=== PATIENT | male | born 1950 | race Caucasian/White ===

== ENCOUNTER 2025-08-14 20:16 | Inpatient (IN) | payer OTHER ==
[~2025-08-14] VITALS: Ht 188 cm; Wt 103.8 kg
[2025-08-14] MEDS ORDERED: Amiodarone HCl 150 MG in NS 100 ML IV ONE (20:50)
[2025-08-14] MEDS ORDERED: Amiodarone HCl 450 MG in NS 250 ML IV SCH (20:50)
[2025-08-14 20:57] LABS: pH Blood Arterial 7.24 (7.35-7.45)
[2025-08-14 20:58] LABS: Hematocrit 49.1 % (37.0-53.0); Hemoglobin 16.2 g/dL (13.5-17.5); Mean Corpuscular HGB Conc 33.0 g/dL (31.5-36.5); Mean Corpuscular Volume 92 fL (80-100); NRBC ABSOLUTE 0.02 K/mm3 (0.00-0.02); NRBC Auto 0.2 /100 WBC (0.0-0.2); Platelet Count 90 K/mm3 (150-400); RDW Coefficient Variation 15.6 % (11.7-14.2); RDW Standard Deviation 53.1 fL (35.1-46.3)
[2025-08-14 21:02] LABS: Alanine Aminotransfer (ALT/SGP 88 U/L (12-78); Albumin, Blood 2.9 g/dL (3.4-5.0); Albumin/Globulin Ratio 0.8 (0.8-1.8); Anion Gap 23 mmol/L (3-11); Aspartate Aminotrans (AST/SGOT 150 U/L (12-37); Bilirubin, Total 2.0 mg/dL (0.1-1.0); Blood Urea Nitrogen 54 mg/dL (8-24); CO2, Blood 14 mmol/L (21-32); Calcium, Blood 9.1 mg/dL (8.5-10.1); Chloride, Blood 102 mmol/L (98-108); Creatinine, Blood 3.55 mg/dL (0.60-1.20); Globulin, Blood 3.8 g/dL (2.2-4.0); Glucose, Blood 84 mg/dL (70-99); Potassium, Blood 3.3 mmol/L (3.5-5.5); Sodium, Blood 136 mmol/L (136-145); Total Protein, Blood 6.7 g/dL (6.4-8.2)
[2025-08-14 21:11] LABS: BAND PERCENT MAN 37 % (0-8); BASOPHILS ABSOLUTE MAN 0.00 K/mm3 (0.00-0.23); BASOPHILS PERCENT MAN 0 % (0-2); EOSINOPHILS ABSOLUTE MAN 0.00 K/mm3 (0.00-0.68); EOSINOPHILS PERCENT MAN 0 % (0-6); LYMPHOCYTES ABSOLUTE MAN 0.97 K/mm3 (0.84-5.20); LYMPHOCYTES PERCENT MAN 11 % (21-46); METAMYELOCYTE ABSOLUTE MAN 0.08 K/mm3 (0.00-0.00); METAMYELOCYTE PERCENT MAN 1 % (0-0); MONOCYTES ABSOLUTE MAN 0.52 K/mm3 (0.16-1.47); MONOCYTES PERCENT MAN 6 % (4-13); MYELOCYTE ABSOLUTE MAN 0.08 K/mm3 (0.00-0.00); MYELOCYTE PERCENT MAN 1 % (0-0); NEUTROPHILS ABSOLUTE MAN 7.15 K/mm3 (1.96-9.15); SEG NEUTROPHILS PERCENT MAN 44 % (41-73)
[2025-08-14] MEDS ORDERED: Potassium Chl 20MEQ/Water100ML 100 ML IV ONE (21:40)
[2025-08-14 21:57] LABS: Prothrombin Time Results 14.6 Sec (9.7-11.5)
[2025-08-14] MEDS ORDERED: Cefepime HCl 2,000 MG in NS 100 ML IV ONE (22:05)
[2025-08-14] MEDS ORDERED: NS 1,000 ML IV SCH (23:15)
[2025-08-14 23:43] LABS: pH Blood Arterial 7.31 (7.35-7.45)
[2025-08-14 23:49] LABS: Acetaminophen, Random <2.0 ug/mL (10.0-30.0); Salicylate <1.7 mg/dL (2.8-20.0)
[2025-08-15] VITALS (75 sets, daily range): BP systolic 37–139; BP diastolic 24–107
[2025-08-15] MEDS ORDERED: Ondansetron HCl 2 MG / ML 2ML Vial IV PRN (00:15)
[2025-08-15] MEDS ORDERED: FLU VACC TS2025(65UP)/MF59C/PF 45 MCG/0.5 ML SYRINGE IM SCH (00:20)
[2025-08-15] MEDS ORDERED: Sodium Bicarb 8.4% Inj 150 MEQ in Dextrose 5% 1,000 ML IV SCH (00:40)
[2025-08-15] MEDS ORDERED: Potassium Chl 20MEQ/Water100ML 100 ML IV STA (00:55)
[2025-08-15] MEDS ORDERED: Vancomycin (Pharmacy Consult) IV SCH ×2 (01:00→18:00)
[2025-08-15 01:58] LABS: Influenza A, PCR NEGATIVE (NEGATIVE); Influenza B, PCR NEGATIVE (NEGATIVE); Resp Syncytial Virus, PCR NEGATIVE (NEGATIVE); SARS-Cov-2 (COVID-19) PCR, MMC NEGATIVE (NEGATIVE)
[2025-08-15 05:04] LABS: Hematocrit 41.8 % (37.0-53.0); Hemoglobin 14.0 g/dL (13.5-17.5); Mean Corpuscular HGB Conc 33.5 g/dL (31.5-36.5); Mean Corpuscular Volume 89 fL (80-100); NRBC ABSOLUTE 0.00 K/mm3 (0.00-0.02); NRBC Auto 0.0 /100 WBC (0.0-0.2); Platelet Count 53 K/mm3 (150-400); RDW Coefficient Variation 15.7 % (11.7-14.2); RDW Standard Deviation 51.8 fL (35.1-46.3)
[2025-08-15 05:13] LABS: pH Blood Arterial 7.31 (7.35-7.45)
[2025-08-15 05:17] LABS: Prothrombin Time Results 15.4 Sec (9.7-11.5)
[2025-08-15 05:27] LABS: BAND PERCENT MAN 43 % (0-8); BASOPHILS ABSOLUTE MAN 0.00 K/mm3 (0.00-0.23); BASOPHILS PERCENT MAN 0 % (0-2); EOSINOPHILS ABSOLUTE MAN 0.00 K/mm3 (0.00-0.68); EOSINOPHILS PERCENT MAN 0 % (0-6); LYMPHOCYTES ABSOLUTE MAN 0.29 K/mm3 (0.84-5.20); LYMPHOCYTES PERCENT MAN 3 % (21-46); METAMYELOCYTE ABSOLUTE MAN 1.97 K/mm3 (0.00-0.00); METAMYELOCYTE PERCENT MAN 20 % (0-0); MONOCYTES ABSOLUTE MAN 0.09 K/mm3 (0.16-1.47); MONOCYTES PERCENT MAN 1 % (4-13); MYELOCYTE ABSOLUTE MAN 0.19 K/mm3 (0.00-0.00); MYELOCYTE PERCENT MAN 2 % (0-0); NEUTROPHILS ABSOLUTE MAN 7.31 K/mm3 (1.96-9.15); SEG NEUTROPHILS PERCENT MAN 31 % (41-73)
[2025-08-15 05:49] LABS: Alanine Aminotransfer (ALT/SGP 78.0 U/L (12-78); Albumin, Blood 2.1 g/dL (3.4-5.0); Albumin/Globulin Ratio 0.7 (0.8-1.8); Anion Gap 18.0 mmol/L (3-11); Aspartate Aminotrans (AST/SGOT 176.0 U/L (12-37); Bilirubin, Total 2.1 mg/dL (0.1-1.0); Blood Urea Nitrogen 60.0 mg/dL (8-24); CO2, Blood 15.0 mmol/L (21-32); Calcium, Blood 7.9 mg/dL (8.5-10.1); Chloride, Blood 105.0 mmol/L (98-108); Creatinine, Blood 3.63 mg/dL (0.60-1.20); Globulin, Blood 3.1 g/dL (2.2-4.0); Glucose, Blood 108.0 mg/dL (70-99); Magnesium, Blood 2.2 mg/dL (1.6-2.4); Potassium, Blood 4.1 mmol/L (3.5-5.5); Sodium, Blood 134.0 mmol/L (136-145); Total Protein, Blood 5.2 g/dL (6.4-8.2)
[2025-08-15 06:20] LABS: pH Blood Venous 7.27 (7.34-7.37)
--- NOTE | 2025-08-15 06:34 | NUR ---
SHIFT SUMMARY PATIENT TO ICU 5 FROM THE ER AT 0143. PATIENT ALERT AND ORIENTED X4, FOLLOWS ALL COMMANDS. GENERALIZED WEAKNESS. NO OBVIOUS DEFICITS, RIGHT PUPIL IS LARGER THAN LEFT, DR AWARE AND CT HEAD WAS DONE BEFORE COMING TO ICU. SP02 WAS 100% ON ARRIVAL TO ICU, PATIENT ON BIPAP 12/ FI02 50%. PATIENT TOOK ABOUT A TEN MINUTE BREAK FROM BIPAP AND WAS PLACED ON 6L VIA NC, 02 SATS REMAINED 95% BUT PATIENTS WORK OF BREATHING INCREASED AND WAS PLACED BACK ON BIPAP. MOUTH SWABS PROVIDED TO HELP PATIENT TOLERATE BIPAP. HR ST 105-140. LEVOPHED REMAINS INFUSING AT 6 MCG/MIN TO MAINTAIN MAP >65. PATIENT DENIES CP/PRESSURE. FINGERS REMAIN PALE AND CYANOTIC AND MOTTLING STILL PRESENT T/O BUT SLIGHTLY IMPROVED. TEMP LANZA PATENT AND DRAINED SCANT AMOUNT OF URINE SINCE ARRIVAL TO ICU, URINE IS DARK YELLOW WITH SOME SEDIMENT. TMAX OF 104.0, ER HAD MEDICATED WITH RECTAL TYLENOL BEFORE PATIENT CAME TO ICU, NO REAL IMPROVEMENT IN TEMP SO PATIENT WAS PLACED ON A COOLING BLANKET. MEDICATED WITH RECTAL TYLENOL PER EMAR THIS AM AND COOLING BLANKET TAKEN OFF PATIENT. TEMP IS CURRENTLY 100.0. PATIENT ABLE TO REPOSITION SELF, ASSISTANCE NEEDED. CALL LIGHT IN REACH
[2025-08-15] MEDS ORDERED: Enoxaparin 30 MG/0.3 ML SYR SC SCH (09:00)
[2025-08-15] MEDS ORDERED: Cefepime HCl 1,000 MG in NS 100 ML IV SCH (09:00)
[2025-08-15] MEDS ORDERED: Lactobacil 2-S.Thermo-Bifido 1 1 Cap PO SCH (09:00)
[2025-08-15 10:49] LABS: Source, Urine Foley catheter
[2025-08-15 10:54] LABS: Bilirubin, Urine Neg (Neg); Color, Urine Amber (P-Yellow); Glucose Qualitative, Urine Neg (Neg); Ketones, Urine Neg (Neg); Leukocyte Esterase, Urine 1+ (Neg); Protein, Urine 3+ (Neg); Specific Gravity, Urine 1.015 (1.003-1.022); Urobilinogen, Urine NORM (Normal)
[2025-08-15 11:09] LABS: U Amphetamine Screen Not Detected; U Barbiturate Screen Not Detected; U Benzodiazapine Screen Not Detected; U Buprenorphine Screen Not Detected; U Cannabinoids Screen Not Detected; U Cocaine Screen Not Detected; U Methadone Screen Not Detected; U Methamphetamine Screen Not Detected; U Opiates Screen Not Detected; U Oxycodone Screen Not Detected; U Phencyclidine Screen Not Detected
[2025-08-15 11:22] LABS: Red Blood Cells, Urine TNTC /hpf (0-2)
--- NOTE | 2025-08-15 11:25 | NUR ---
ASSUMPTION OF CARE RECEIVED REPORT FROM [facility] NURSE. PT IS A&OX4. PT IS ON BIPAP 12/8/40%, SPO2>92. PT TOELRATES BREAKS FROM BIPAP ON HIGHFLOW NC AT 6L. PT IN SINUS TACH, MAP >65 WITH LEVO AT 6. PT DENIES ABD PAIN. PT HAS MOTTLING IN ALL EXTREMITIES AND NOSE. PT REPORTED PAIN IN BOTH HANDS. SCATTERED BRUISING IN BLE. CALL LIGHT WITHIN REACH WITH NO NEEDS EXPRESSED AT THIS TIME.
[2025-08-15 12:42] LABS: C-REACTIVE PROTEIN, EXT RANGE >19.000 mg/dL (0.000-0.300); Lactate Dehydrogenase (Ld),Bld 596 U/L (100-240)
[2025-08-15] MEDS ORDERED: ARTHRITIS PAIN150 GM TOP (14:04)
[2025-08-15] MEDS ORDERED: METO25 PO (14:05)
[2025-08-15] MEDS ORDERED: PREG75 PO (14:06)
[2025-08-15] MEDS ORDERED: ZOCOR20 MG PO (14:07)
[2025-08-15] MEDS ORDERED: TRAM50 PO (14:15)
--- NOTE | 2025-08-15 14:18 | NUR ---
MERGE CHARTS PT HAS TWO DIFFERENT MEDICAL RECORD NUMBERS. OTHER CHART MEDICAL RECORD NUMBER IS [id number].
[2025-08-15] MEDS ORDERED: Phenylephrine HCl 100 MCG/ML-NS 10MLSYR (1MG/10ML) IV ONE (18:31)
--- NOTE | 2025-08-15 18:43 | NUR ---
SHIFT SUMMARY PT IS A&OX4 FOR DURATION OF SHIFT. PT ON HIGHFLOW NC AT 6L, SPO2 >92%. BIPAP ON STANDBY PRN. SETTINGS 16/8/40% FIO2. HR IN 110-120S, MAP >65 WITH LEVO AT 4. PT IN SINUS ARRYTHMIA WITH PVCS. PT HAS AICD, REPLACED IN 2020. PT DENIES ABD PAIN. NO BM. LANZA CATH IN PLACE DRAINING TO GRAVITY WITH APPROX 60MLS OF OUTPUT T/O SHIFT. BLADDER SCAN AT 1730 SHOWED 35MLS IN BLADDER. IRRIGATED LANZA, PATENT. PT HAS MOTTLING IN ALL EXTREMITIES AND NOSE. COOL EXTREMITIES WITH INCREASED CORE WARMTH. TMAX 100.7. PRN MEDS IN EMAR. FAMILY AT BEDSIDE. CALL LIGHT WITHIN REACH AND NO NEEDS EXPRESSED AT THIS TIME.
[2025-08-15] MEDS ORDERED: D5W-LR 1,000 ML IV SCH (19:00)
[2025-08-15 20:28] LABS: Albumin, Blood 2.2 g/dL (3.4-5.0); Anion Gap 17 mmol/L (3-11); Blood Urea Nitrogen 75 mg/dL (8-24); CO2, Blood 20 mmol/L (21-32); Calcium, Blood 7.4 mg/dL (8.5-10.1); Chloride, Blood 99 mmol/L (98-108); Creatinine, Blood 4.16 mg/dL (0.60-1.20); Glucose, Blood 113 mg/dL (70-99); Phosphorus, Blood 4.2 mg/dL (2.5-4.9); Potassium, Blood 3.9 mmol/L (3.5-5.5); Sodium, Blood 132 mmol/L (136-145)
[2025-08-16] VITALS (63 sets, daily range): BP systolic 77–149; BP diastolic 42–108
[2025-08-16 01:55] LABS: Campylobacter Sp Not Detected (NOT DETECT); Salmonella Sp Not Detected (NOT DETECT)
[2025-08-16 01:56] LABS: E. Coli O157 Not Detected (NOT DETECT); Enteroaggregative E. coli-EAEC Not Detected (NOT DETECT); Enteropathogenic E. coli-EPEC Not Detected (NOT DETECT); Enterotoxigenic E. coli-ETEC Not Detected (NOT DETECT); Shiga Toxin-prod E. coli-STEC Not Detected (NOT DETECT); Shigella/Enteroin E. coli-EIEC Not Detected (NOT DETECT); Vibrio Sp Not Detected (NOT DETECT)
[2025-08-16 04:30] LABS: Hematocrit 36.1 % (37.0-53.0); Hemoglobin 12.9 g/dL (13.5-17.5); Mean Corpuscular HGB Conc 35.7 g/dL (31.5-36.5); Mean Corpuscular Volume 85 fL (80-100); NRBC ABSOLUTE 0.02 K/mm3 (0.00-0.02); NRBC Auto 0.1 /100 WBC (0.0-0.2); RDW Coefficient Variation 16.0 % (11.7-14.2); RDW Standard Deviation 50.8 fL (35.1-46.3)
[2025-08-16 04:47] LABS: Platelet Count 22 K/mm3 (150-400)
[2025-08-16 04:52] LABS: Alanine Aminotransfer (ALT/SGP 87 U/L (12-78); Albumin, Blood 2.0 g/dL (3.4-5.0); Albumin/Globulin Ratio 0.7 (0.8-1.8); Anion Gap 16 mmol/L (3-11); Aspartate Aminotrans (AST/SGOT 157 U/L (12-37); Bilirubin, Total 1.6 mg/dL (0.1-1.0); Blood Urea Nitrogen 79 mg/dL (8-24); CO2, Blood 21 mmol/L (21-32); Calcium, Blood 7.1 mg/dL (8.5-10.1); Chloride, Blood 99 mmol/L (98-108); Creatinine, Blood 4.37 mg/dL (0.60-1.20); Globulin, Blood 2.7 g/dL (2.2-4.0); Glucose, Blood 122 mg/dL (70-99); Phosphorus, Blood 3.9 mg/dL (2.5-4.9); Potassium, Blood 4.1 mmol/L (3.5-5.5); Sodium, Blood 132 mmol/L (136-145); Total Protein, Blood 4.7 g/dL (6.4-8.2); Vancomycin, Trough 19.9 ug/mL (5.0-10.0)
[2025-08-16 05:10] LABS: BAND PERCENT MAN 39 % (0-8); BASOPHILS ABSOLUTE MAN 0.00 K/mm3 (0.00-0.23); BASOPHILS PERCENT MAN 0 % (0-2); EOSINOPHILS ABSOLUTE MAN 0.00 K/mm3 (0.00-0.68); EOSINOPHILS PERCENT MAN 0 % (0-6); LYMPHOCYTES ABSOLUTE MAN 0.16 K/mm3 (0.84-5.20); LYMPHOCYTES PERCENT MAN 1 % (21-46); METAMYELOCYTE ABSOLUTE MAN 0.16 K/mm3 (0.00-0.00); METAMYELOCYTE PERCENT MAN 1 % (0-0); MONOCYTES ABSOLUTE MAN 0.16 K/mm3 (0.16-1.47); MONOCYTES PERCENT MAN 1 % (4-13); NEUTROPHILS ABSOLUTE MAN 16.44 K/mm3 (1.96-9.15); SEG NEUTROPHILS PERCENT MAN 58 % (41-73)
[2025-08-16 05:34] LABS: pH Blood Venous 7.37 (7.34-7.37)
--- NOTE | 2025-08-16 06:07 | NUR ---
END OF SHIFT SUMMARY PT IS A&0 X4 AND ABLE TO MAKE NEEDS KNOWN, CAN MOVE EXTREMITIES EQUALLY AND BILATERALLY. CONTINUOUS CARDIAC MONITORING IN PLACE SHOWING SINUS ARRHTYHMIA WITH OCCASIONAL PAC'S, MAP >65. LEVOPHED IS ON SB. PT IS ON 6 L NC WITH SP02 >92%. PT HAD A BROWN LOOSE BM THIS SHIFT. TEMP LANZA IS IN PLACE AND DRAINING TO GRAVITY. PT'S SKIN CONTINUES TO BE COOL, PALE, AND SLIGHTLY MOTTLED. CENTRAL LINE IS IN PLACE TO THE [facility]. BED IN LOWEST POSITION, CALL LIGHT IN REACH, WILL REPORT TO ONCOMING SHIFT.
--- NOTE | 2025-08-16 12:09 | NUR ---
PATIENT BRIEF TOA- PATIENT RECEIVED FROM NIGHT RN KITTY AROUND 0705AM,TOA @ BEDSIDE.PATIENT IS AWAKE,ALERT AND ORIENTED,GCS-15.PATIENT DOES HAVE LANZA IN PLACE AND CONTINUOUS CARDIAC MONITORING,DENIES ANY CHEST PAIN,VSS.PATIENT BED IS AT LOWEST POSITION,CLUTTER FREE ENVIRONMENT AND CALL RESENDIZ WITIN REACH. MD ROUNDS DONE, DID ORDER 2 SETS OF BLOOD CULTURE TO BE COLLECTED AND ITS DONE.PATIENT FAMILY IS VISITING @ BEDSIDE AT THIS TIME,FAMILY UPDATED AT BEDSIDE.
[2025-08-16] MEDS ORDERED: FentaNYL Citrate 50 MCG/ML 2 ML Injection IV PRN (12:30)
[2025-08-16] MEDS ORDERED: NS 1,000 ML IV SCH (13:40)
--- NOTE | 2025-08-16 18:25 | NUR ---
SHIFT SUMMARY- PATIENT IS ALERT AND ORIENTED x4,gcs-15 and rass-0.PATIENT VSS,MAP ABOVE 65 AND O2 SAT ABOVE 92% on NASAL CANNULA-5L,HR- 90-100s , .LANZA IN PLACE AND DID URINATE ADEUATE AMOUNT.PATIENT DID COMPLAIN OF PAIN ON AND OFF AND GOT MEDICATION PRN ORDERED BY MD.FAMILY AT BEDSIDE ALL DAY.BED AT LOWEST POSITION,CLUTTER FREE ENVIRONMENT AND CALL RESENDIZ WITHIN REACHED.
[2025-08-16 19:11] LABS: Hematocrit 33.3 % (37.0-53.0); Hemoglobin 11.9 g/dL (13.5-17.5); Mean Corpuscular HGB Conc 35.7 g/dL (31.5-36.5); Mean Corpuscular Volume 85 fL (80-100); NRBC ABSOLUTE 0.03 K/mm3 (0.00-0.02); NRBC Auto 0.2 /100 WBC (0.0-0.2); RDW Coefficient Variation 15.9 % (11.7-14.2); RDW Standard Deviation 50.5 fL (35.1-46.3)
[2025-08-16 19:22] LABS: Platelet Count 15 K/mm3 (150-400)
[2025-08-16 19:33] LABS: D-Dimer, Quantitative >35.20 mg/L FEU (0.00-0.52)
[2025-08-16 19:42] LABS: BAND PERCENT MAN 23 % (0-8); BASOPHILS ABSOLUTE MAN 0.00 K/mm3 (0.00-0.23); BASOPHILS PERCENT MAN 0 % (0-2); EOSINOPHILS ABSOLUTE MAN 0.00 K/mm3 (0.00-0.68); EOSINOPHILS PERCENT MAN 0 % (0-6); LYMPHOCYTES ABSOLUTE MAN 0.19 K/mm3 (0.84-5.20); LYMPHOCYTES PERCENT MAN 1 % (21-46); MONOCYTES ABSOLUTE MAN 0.59 K/mm3 (0.16-1.47); MONOCYTES PERCENT MAN 3 % (4-13); NEUTROPHILS ABSOLUTE MAN 19.16 K/mm3 (1.96-9.15); SEG NEUTROPHILS PERCENT MAN 73 % (41-73)
[2025-08-16 19:42] LABS: Alanine Aminotransfer (ALT/SGP 85.0 U/L (12-78); Albumin, Blood 1.9 g/dL (3.4-5.0); Albumin/Globulin Ratio 0.7 (0.8-1.8); Anion Gap 15.0 mmol/L (3-11); Aspartate Aminotrans (AST/SGOT 138.0 U/L (12-37); Bilirubin, Total 1.7 mg/dL (0.1-1.0); Blood Urea Nitrogen 91.0 mg/dL (8-24); CO2, Blood 21.0 mmol/L (21-32); Calcium, Blood 7.1 mg/dL (8.5-10.1); Chloride, Blood 97.0 mmol/L (98-108); Creatinine, Blood 4.74 mg/dL (0.60-1.20); Globulin, Blood 2.8 g/dL (2.2-4.0); Glucose, Blood 93.0 mg/dL (70-99); Potassium, Blood 4.3 mmol/L (3.5-5.5); Sodium, Blood 129.0 mmol/L (136-145); Total Protein, Blood 4.7 g/dL (6.4-8.2)
--- NOTE | 2025-08-16 19:51 | NUR ---
DR BARRIENTOS CALLED TO CHECK ON PT, RESULTED LABS WERE GIVEN. REPORTED TO HIM THAT PT NOSE HAS BECOME MORE PURPLE AND PETECHIAE HAS WORSENED FROM EARLIER IN THE DAY. SOME LABS ARE STILL PENDING. PT IS ALERT AND ORIENTED X4 AT THIS TIME. FAMILY AT BEDSIDE. PT REPORTS HAND PAIN AND IS BEING MEDICATED PER EMAR
[2025-08-16 20:20] LABS: Fibrinogen 532 mg/dL (170-430)
[2025-08-16 20:33] LABS: Prothrombin Time Results 11.9 Sec (9.7-11.5)
[2025-08-17] VITALS (53 sets, daily range): BP systolic 95–145; BP diastolic 47–115
[2025-08-17 04:02] LABS: Hematocrit 32.5 % (37.0-53.0); Hemoglobin 11.6 g/dL (13.5-17.5); Mean Corpuscular HGB Conc 35.7 g/dL (31.5-36.5); Mean Corpuscular Volume 86 fL (80-100); NRBC ABSOLUTE 0.02 K/mm3 (0.00-0.02); NRBC Auto 0.1 /100 WBC (0.0-0.2); RDW Coefficient Variation 16.1 % (11.7-14.2); RDW Standard Deviation 51.4 fL (35.1-46.3)
[2025-08-17] MEDS ORDERED: HYDROmorphone HCl/Pf 1MG SYR IV ONE (04:20)
[2025-08-17 04:28] LABS: D-Dimer, Quantitative >35.20 mg/L FEU (0.00-0.52); Fibrinogen 446 mg/dL (170-430); Prothrombin Time Results 12.1 Sec (9.7-11.5)
[2025-08-17 04:35] LABS: Alanine Aminotransfer (ALT/SGP 83 U/L (12-78); Albumin, Blood 1.8 g/dL (3.4-5.0); Albumin/Globulin Ratio 0.6 (0.8-1.8); Anion Gap 14 mmol/L (3-11); Aspartate Aminotrans (AST/SGOT 133 U/L (12-37); Bilirubin, Total 1.7 mg/dL (0.1-1.0); Blood Urea Nitrogen 94 mg/dL (8-24); CO2, Blood 21 mmol/L (21-32); Calcium, Blood 7.1 mg/dL (8.5-10.1); Chloride, Blood 98 mmol/L (98-108); Creatinine, Blood 4.59 mg/dL (0.60-1.20); Globulin, Blood 3.0 g/dL (2.2-4.0); Glucose, Blood 95 mg/dL (70-99); Magnesium, Blood 2.2 mg/dL (1.6-2.4); Phosphorus, Blood 4.2 mg/dL (2.5-4.9); Potassium, Blood 4.4 mmol/L (3.5-5.5); Sodium, Blood 129 mmol/L (136-145); Total Protein, Blood 4.8 g/dL (6.4-8.2); Vancomycin, Random 24.6 ug/mL
[2025-08-17 04:38] LABS: Platelet Count 14 K/mm3 (150-400)
[2025-08-17 05:01] LABS: BAND PERCENT MAN 7 % (0-8); BASOPHILS ABSOLUTE MAN 0.00 K/mm3 (0.00-0.23); BASOPHILS PERCENT MAN 0 % (0-2); EOSINOPHILS ABSOLUTE MAN 0.00 K/mm3 (0.00-0.68); EOSINOPHILS PERCENT MAN 0 % (0-6); LYMPHOCYTES ABSOLUTE MAN 0.24 K/mm3 (0.84-5.20); LYMPHOCYTES PERCENT MAN 1 % (21-46); MONOCYTES ABSOLUTE MAN 0.24 K/mm3 (0.16-1.47); MONOCYTES PERCENT MAN 1 % (4-13); NEUTROPHILS ABSOLUTE MAN 23.71 K/mm3 (1.96-9.15); SEG NEUTROPHILS PERCENT MAN 91 % (41-73)
--- NOTE | 2025-08-17 07:10 | NUR ---
SHIFT SUMMARY PT A&O x2-3, PT ORIENTED TO SELF/DATE, NOT ORIENTED TO LOCATION/SITUATION. PT MENTATION CHANGE S/P 1MG IV DILAUDID R/T 08/04 R HAND PAIN @ APPROX 0430. PT ASNWERS QUESTIONS & FOLLOWS BASIC COMMANDS. O2 SAT >92% ON 5L O2 VIA NC, DENIES SOB. HR 90-110s, SINUS ARRYTHMIA, MAP >65. NS INFUSING @ 100mL/HR. TEMP LANZA DRAINING YELLOW URINE TO GRAVITY. SOFT BM THIS SHIFT. 2 PERSON MAX ASSSIT R/T REPOSITIONING. MOTTLING TO NOSE, R HAND, BILAT FEET WORSENING. PETECHIAE TO BILAT INNER KNEES SPREADING. BEDSIDE REPORT GIVEN TO DAY RN, PT SLEEPING, CALL LIGHT IN REACH.
[2025-08-17 08:45] LABS: HEMOGLOBIN A2 2.6 % (2.0-3.5); HEMOGLOBIN C 0.0 % (0.0-0.0); HEMOGLOBIN F 0.2 % (0.0-2.1); HEMOGLOBIN S 0.0 % (0.0-0.0); HEMOGLOBIN, CAPILLARY ELECTROP Not Performed; SICKLE CELL SOLUBILITY Not Performed
--- NOTE | 2025-08-17 10:21 | NUR ---
AM NOTE.... ASSUMED CARE OF PT AT 0700, PT IS SLEEPING BUT ROUSABLE WITH STIMULATION. PT'S DAUGHTER AT THE BEDSIDE DURING THIS ASSESSMENT. DR. BARRIENTOS ALSO AT THE BEDSIDE TO ASSESS THE PT AND SPEAK WITH FAMILY. PT WOKE TO TOUCH STIMULI, HE WAS CONFUSED TO WHERE HE WAS AT AND ABLE TO STATE THE VISITOR WAS HIS DAUGHTER AFTER A LONG PAUSE BUT WAS UNABLE TO REMEMEBER HER NAME. PT IS IN AFIB IN THE 80'S-90'S, BP IS STABLE WITH SBPs 100'S-120'S AND MAPS>65. TRACE EDEMA IS NOTED TO HIS BLE. THE PT'S FEET/TOES AND HANDS/FINGERS ARE NOTED TO HAVE MOTTLING/PURPURA. AT ASSUMPTION OF CARE THE PT'S FEET AND HANDS WERE VERY COLD TO THE TOUCH DURING THIS ASSESSMENT AT 0930 THE LEFT HAND WAS WARM TO THE TOUCH THE RIGHT HAND IS WARM BUT THE FINGERS ARE COOL WITH CAP REFIL >6 SECONDS. THE TOPS OF HIS FEET BILATERALLY HAVE BECOME WARM THE TOES ARE STILL COOL TO THE TOUCH. PT CURRENTLY DENIES PAIN. HE IS ON 5L NC WITH O2 SATS>90% L/S COARSE IN THE UPPER LOBES THAT IMPROVES WITH COUGHING, CLEAR AND DIM IN THE MID/LOWER LOBES. BT ARE PRESENT AND NORMOACTIVE, ABD IS SOFT AND NONTENDER TO PALPATION. TEMP LANZA IS IN PLACE, CURRENT TEMP IS 97.1. PLAN FOR WBC TEST THIS AFTERNOON.
[2025-08-17 13:12] LABS: HEPATITIS A ANTIBODY, IGM Negative (Negative); HEPATITIS C AB CIA INTERP Negative (Negative); HEPATITIS C ANTIBODY CIA INDEX <0.02 IV
[2025-08-17 16:13] LABS: ANTI-NUCLEAR AB ANA,IGG ELISA None Detected (None Detected)
[2025-08-17 17:15] LABS: CYCLIC CITRULLINATED PEP,IGG/A 4 Units (0-19)
--- NOTE | 2025-08-17 18:09 | NUR ---
SHIFT SUMMARY.... PT'S MENTATION HAS IMPROVED T/O THIS SHIFT, PT IS WIDE AWAKE AND SPEAKING FULL SENTENCES WITH STAFF AND FAMILY. PT STILL HAS MOMENTS OF FORGETFULNESS AND "LOOSING MY WORDS AND TOUGHTS." BUT IS MUCH IMPROVED FROM THIS MORNING. THE PT WAS TAKEN TO [place] FOR THE TAGGED WBC TEST TWICE THIS SHIFT, ONCE FOR A 2HR TEST AND SECOND FOR A 5HR TEST, PT TOLERATED THE TRANSFERS WELL. PT'S VS HAVE BEEN STABLE ALL SHIFT, HIS O2 HAS BEEN TITRATED DOWN FROM 5L NC TO RA WITH O2 SATS>90%, L/S HAVE IMPROVED AND ARE CURRENTLY CLEAR T/O DIM IN THE BASES. PT'S HR CONTINUES TO BE IN THE 80'S-90'S THIS AM IT LOOKED LIKE IT COULD BE AFIB OR SA WITH FREQUENT PACs BUT CURRENTLY THE RATE IS STEADY AND HE IS IN SA IN THE 80'S. BP HAS BEEN STABLE WITH SBPs IN THE 120'S-140'S MAPS>65. THIS RN HAS NOTED GENERALIZED NON-PITTING EDEMA TO HIS TRUNK, UPPER ARMS AND LEGS. THE MOTTLEING/PURPURA CONTINUES TO STAY THE SAME (PICTURES IN THE CHART) THE PT'S EXTREMITIES ARE STILL WARM BUT TOES AND FINGERS ARE COOL TO THE TOUCH. PT'S PAIN HAS BEEN BETTER CONTROLLED WITH NO PAIN MEDICATIONS GIVEN THIS SHIFT. THE PT'S LANZA IS PATENT AND DRAINED 690MLS OF YELLOW URINE WITH SOME SEDIMENT NOTED. PT HAS NOT HAD A BM THIS SHIFT. CHG BEDBATH WAS GIVEN AND LINEN CHANGED. PT WAS NOTED TO HAVE OPEN SKIN ON THE HEAD OF HIS PENIS DURING CATH CARE THIS SHIFT, 2 NEW PURPURA SITES WERE ALSO NOTED AND PICTURES TAKEN FOR THE CHART ON THE PT'S LEFT BUTTOCKS. PT'S FAMILY AT THE BEDSIDE T/O THIS SHIFT, ALL UPDATED AND QUESTIONS WERE ANSWERED BY THIS RN AND OTHER PROVIDERS.
[2025-08-18] VITALS (32 sets, daily range): BP systolic 113–168; BP diastolic 75–115
[2025-08-18 03:21] LABS: BASOPHILS ABSOLUTE AUTO 0.05 K/mm3 (0.00-0.23); BASOPHILS PERCENT AUTO 0 % (0-2); EOSINOPHILS ABSOLUTE AUTO 0.01 K/mm3 (0.00-0.68); EOSINOPHILS PERCENT AUTO 0 % (0-6); Hematocrit 31.0 % (37.0-53.0); Hemoglobin 11.1 g/dL (13.5-17.5); IMMATURE GRAN ABSOLUTE AUTO 0.60 K/mm3 (0.00-0.10); IMMATURE GRAN PERCENT AUTO 3 % (0-1); LYMPHOCYTES ABSOLUTE AUTO 1.59 K/mm3 (0.84-5.20); LYMPHOCYTES PERCENT AUTO 7 % (21-46); MONOCYTES ABSOLUTE AUTO 0.55 K/mm3 (0.16-1.47); MONOCYTES PERCENT AUTO 2 % (4-13); Mean Corpuscular HGB Conc 35.8 g/dL (31.5-36.5); Mean Corpuscular Volume 86 fL (80-100); NEUTROPHILS ABSOLUTE AUTO 19.72 K/mm3 (1.96-9.15); NEUTROPHILS PERCENT AUTO 88 % (41-73); NRBC ABSOLUTE 0.00 K/mm3 (0.00-0.02); NRBC Auto 0.0 /100 WBC (0.0-0.2); RDW Coefficient Variation 16.3 % (11.7-14.2); RDW Standard Deviation 51.9 fL (35.1-46.3)
[2025-08-18 03:25] LABS: Platelet Count 15 K/mm3 (150-400)
[2025-08-18 03:39] LABS: D-Dimer, Quantitative >35.20 mg/L FEU (0.00-0.52); Prothrombin Time Results 11.7 Sec (9.7-11.5)
[2025-08-18 04:20] LABS: Alanine Aminotransfer (ALT/SGP 83 U/L (12-78); Albumin, Blood 1.9 g/dL (3.4-5.0); Albumin/Globulin Ratio 0.6 (0.8-1.8); Anion Gap 13 mmol/L (3-11); Aspartate Aminotrans (AST/SGOT 125 U/L (12-37); Bilirubin, Total 1.1 mg/dL (0.1-1.0); Blood Urea Nitrogen 103 mg/dL (8-24); CO2, Blood 21 mmol/L (21-32); Calcium, Blood 6.9 mg/dL (8.5-10.1); Chloride, Blood 101 mmol/L (98-108); Creatinine, Blood 4.80 mg/dL (0.60-1.20); Globulin, Blood 3.1 g/dL (2.2-4.0); Glucose, Blood 108 mg/dL (70-99); Lactate Dehydrogenase (Ld),Bld 602 U/L (100-240); Magnesium, Blood 2.3 mg/dL (1.6-2.4); Phosphorus, Blood 5.2 mg/dL (2.5-4.9); Potassium, Blood 4.1 mmol/L (3.5-5.5); Sodium, Blood 131 mmol/L (136-145); Total Protein, Blood 5.0 g/dL (6.4-8.2); Vancomycin, Random 19.7 ug/mL
--- NOTE | 2025-08-18 05:56 | NUR ---
SHIFT SUMMARY: PT REMAINS A&O X 4, PLEASANT AND COOPERATIVE WITH CARE; AT START OF SHIFT PT VERBALIZING SOME VISUAL HALLUCINATIONS BUT AFTER HOURS OF SLEEP HALLUCINATIONS HAVE DECREASED. PT ON RA WHEN AWAKE AND WHILE SLEEP NC @ 2LPM TO MAINTAIN SPO2 90<. PT DENIES SOB. PT SR ON MONITOR WITH HR 70-80, SBP 130-150 AND DENIES CHEST PAIN/PRESSURE. PT TOLERATES PO INTAKE. TEMP LANZA PATENT AND DRAINING TO GRAVITY; URINE YELLOW. AFEBRILE THROUGHOUT SHIFT. PT CONTINENT OF STOOL. NO BM THIS SHIFT. PT HAD SOME PAIN TO FINGERS AND TOES THIS SHIFT; CREAM APPLIED TO HANDS AND FEET. AND ONE DOSE OF FENTANYL GIVEN PER EMAR WITH GOOD EFFECT. PT STARTED TO HAVE SOME ACID REFLUX THIS MORNING AND TUMS GIVEN WITH GOOD EFFECT. RIJ PATENT AND INFUSING NS @ 100 MLS/HR. DIFFUSE, RED-PURPLE DISCOLORATION TO FINGERS, TOES, BLE AND NOSE UNCHANGED. WILL REPORT OFF TO ONCOMING RN
--- NOTE | 2025-08-18 08:32 | NUR ---
ASSUMED CARE NOTE: ASSUMED CARE OF PT AT 0700, PT IS ALERT, ORIENTED TO SELF/PLACE, DISORIENTED TO TIME AND SITUATION. PT IS HAVING VISUAL HALLUCINATIONS.PUPILS EQUAL AND RESPONSIVE. PT DENIES ANY PAIN AT THIS TIME. PT ABLE TO MOVE ALL EXTREMITIES, WEAKNESS T/O. PT REMAINS ON 2L OF OXYGEN VIA NC TO MAINTAIN SPO2 ABOVE 92% PT IN SR WITH HR IN THE 70-80'S, BP STABLE. PT DENIES ANY CHEST PAIN. ORAL CARE PROVIDED, IMPROPER FIT TO UPPER DENTURES, DRY ORAL MUCOSA NOTED. PT TOLERATING PO INTAKE, DENIES NAUSEA. ABD FIRM AND DISTENDED, NO TENDERNESS, ACTIVE BOWEL TONES IN ALL QUADRANTS. LANZA PATENT, DRAINING TO GRAVITY. DISCOLORATION NOTED TO BILATERAL HANDS/TOES, NOSE, THIGHS. BLISTER NOTED ON RIGHT GREAT TOE. SCD'S IN PLACE. PLAN OF CARE ONGOING.
[2025-08-18] MEDS ORDERED: Benzocaine Oral Spray 0.5ML UD ONE (15:40)
--- NOTE | 2025-08-18 18:49 | NUR ---
SHIFT SUMMARY: PT IS ALERT AND ORIENTED TO SELF/FAMILY, PT ABLE TO FOLLOW COMMANDS. PT IS DISORIENTED TO TIME/SITUATION. PT HAVING VISUAL HALLUCINATIONS. PT DENIES PAIN AT THIS TIME. PT REMAINS ON 2L OF OXYGEN VIA NC TO MAINTAIN SPO2 ABOVE 92% NO RESP DISTRESS NOTED. PT IN SR WITH BBB, HR IN THE 80'S, BP STABLE, MAP'S ABOVE 65. PT HAD GIBRAN AT BEDSIDE THIS SHIFT, TOLERATED WELL. LANZA PATENT DRAINING TO GRAVITY. NO BM THIS SHIFT. PLAN OF CARE ONGOING.
--- NOTE | 2025-08-18 22:08 | NUR ---
ASSUMPTION OF CARE: ASSUMED CARE AT START OF SHIFT (1899). REPORT RECEIVED FROM DAY SHIFT RN. PT IS DOING WELL AND RESTING IN BED. FAMILY IS AT BEDSIDE VISITING WITH PT. PT IS ALERT AND FOLLOWING COMMANDS. PT DENIES ANY PAIN, SP, OR SOB AT THIS TIME. LUNG SOUNDS ARE CLEAR AND DIMINISHED IN BASES, ON O2 @ 2LPM VIA NC SPO2 > 95%. SINUS RYTHM WITH SBP: 103-140'S MAP >65 HR: 70'S. IV: POWERGLIDE IN LUE. SKIN: SCATTERED MOTTLING AND BRUISING ON ALL EXTREMITIES, EDMEA IN BLE, LARGE BLISTER ON R BIG TOE. LANZA CATHETER IN PLACE AND DRAINING TO GRAVITY. LINES, CORDS, AND TUBES PLACED OUT OF REACH. CALL LIGHT PLACED WITHIN REACH.
[2025-08-19] VITALS (45 sets, daily range): BP systolic 130–164; BP diastolic 74–105
[2025-08-19 04:50] LABS: Alanine Aminotransfer (ALT/SGP 89 U/L (12-78); Albumin, Blood 2.0 g/dL (3.4-5.0); Albumin/Globulin Ratio 0.6 (0.8-1.8); Anion Gap 15 mmol/L (3-11); Aspartate Aminotrans (AST/SGOT 133 U/L (12-37); Bilirubin, Total 1.0 mg/dL (0.1-1.0); Blood Urea Nitrogen 100 mg/dL (8-24); CO2, Blood 18 mmol/L (21-32); Calcium, Blood 7.6 mg/dL (8.5-10.1); Chloride, Blood 105 mmol/L (98-108); Creatinine, Blood 4.17 mg/dL (0.60-1.20); Globulin, Blood 3.2 g/dL (2.2-4.0); Glucose, Blood 96 mg/dL (70-99); Magnesium, Blood 2.4 mg/dL (1.6-2.4); Phosphorus, Blood 5.4 mg/dL (2.5-4.9); Potassium, Blood 4.3 mmol/L (3.5-5.5); Sodium, Blood 134 mmol/L (136-145); Total Protein, Blood 5.2 g/dL (6.4-8.2); Vancomycin, Random 25.3 ug/mL
[2025-08-19 05:49] LABS: Hematocrit 32.0 % (37.0-53.0); Hemoglobin 11.4 g/dL (13.5-17.5); Mean Corpuscular HGB Conc 35.6 g/dL (31.5-36.5); Mean Corpuscular Volume 87 fL (80-100); NRBC ABSOLUTE 0.03 K/mm3 (0.00-0.02); NRBC Auto 0.1 /100 WBC (0.0-0.2); RDW Coefficient Variation 16.7 % (11.7-14.2); RDW Standard Deviation 53.7 fL (35.1-46.3)
[2025-08-19 05:53] LABS: Prothrombin Time Results 11.5 Sec (9.7-11.5)
[2025-08-19 06:09] LABS: Platelet Count 21 K/mm3 (150-400)
[2025-08-19 06:13] LABS: BAND PERCENT MAN 1 % (0-8); BASOPHILS ABSOLUTE MAN 0.00 K/mm3 (0.00-0.23); BASOPHILS PERCENT MAN 0 % (0-2); EOSINOPHILS ABSOLUTE MAN 0.00 K/mm3 (0.00-0.68); EOSINOPHILS PERCENT MAN 0 % (0-6); LYMPHOCYTES % ATYPICAL MANUAL 1 % (0-0); LYMPHOCYTES ABSOLUTE MAN 1.36 K/mm3 (0.84-5.20); LYMPHOCYTES PERCENT MAN 5 % (21-46); METAMYELOCYTE ABSOLUTE MAN 0.22 K/mm3 (0.00-0.00); METAMYELOCYTE PERCENT MAN 1 % (0-0); MONOCYTES ABSOLUTE MAN 1.59 K/mm3 (0.16-1.47); MONOCYTES PERCENT MAN 7 % (4-13); NEUTROPHILS ABSOLUTE MAN 19.61 K/mm3 (1.96-9.15); SEG NEUTROPHILS PERCENT MAN 85 % (41-73)
--- NOTE | 2025-08-19 06:19 | NUR ---
SHIFT SUMMARY: PT IS DOING WELL AND RESTING IN BED. PT STATES THAT THEY WERE ABLE TO SLEEP FOR A FEW HOURS DURING THE NIGHT BUT THE PT HAS BEEN TALKIG TO THEMSELF ALL NIGHT. WHEN ASKED PT STATED THAT THEY NORMALLY TALK IN THEIR SLEEP AND WILL SLEEP WALK WELL. NO ACUTE CHANGES DURING THE SHIFT, VITAL SIGNS REMAIN STABLE. PT HAS A LARGE BLISTER ON THE R BIG TOE THAT HAS GOTTEN BIGGER THE NIGHT PROGRESSED. PICTURE OF BLISTER WAS TAKEN AND PLACED IN CHART. IV: POWERGLIDE IN LUE. LANZA CATHETER IN PLACE AND DRAINING TO GRAVITY. LINES, CORDS, AND TUBES PLACED OUT OF REACH. CALL LIGHT PLACED WITH IN REACH.
--- NOTE | 2025-08-19 09:03 | NUR ---
ASSUMED CARE NOTE: ASSUMED CARE OF PT AT 0700. PT IS ALERT AND ORIENTED X 2 ABLE TO FOLLOW COMMANDS AND COMMUNICATE NEEDS. PT DISORIENTED TO TIME/SITUATION. PRESSURE SPEECH NOTED, JUMPING FROM TOPIC TO TOPIC. PT HAS VISUAL HALLUCINATIONS. PT DENIES ANY PAIN AT THIS TIME. PT REMAINS ON 2L OF OXYGEN VIA NC TO MAINTAIN SPO2 ABOVE 92% NO RESP DISTRESS NOTED. PT IN SR WITH HR IN THE 80'S MAP'S REMAIN ABOVE 65. PT DENIES ANY CHEST PAIN. MILD ABD DISTENTION, FIRM, PT DENIES NAUSEA, ACTIVE BT IN ALL QUANDRANTS. LANZA PATENT, DRAINING TO GRAVITY. CHG BATH COMPLETED, PT PLACED IN CHAIR VIA LIFT. CALL LIGHT WITHIN REACH.
[2025-08-19] MEDS ORDERED: Clindamycin 900mg in D5W 50ML 50 ML IV SCH (10:22)
--- NOTE | 2025-08-19 17:50 | NUR ---
SHIFT SUMMARY NOTE: PT REMAINS ALERT AND ORIENTED TO SELF/PLACE/FAMILY, ABLE TO COMMUNICATE NEEDS AND FOLLOW COMMANDS. PT DISORIENTED TO TIME/SITUATION AT TIMES. PT VERY TALKATIVE, FREQUENT VISITORS AT BEDSIDE. PT REPORTS HAVING VISUAL HALLUCINATIONS AT TIMES AND TALKS TO SELF. PT DENIES PAIN AT THIS TIME. PT REMAINS ON RA WITH SPO2 ABOVE 92% NO RESP DISTRESS NOTED. PT IN SR WITH HR IN THE 70'S, BP STABLE, MAP'S ABOVE 65. PT DENIES CHEST PAIN. PT REMAINS AFEBRILE. PT HAS POOR APPETITE, ACTIVE BOWEL TONES IN ALL QUADRANTS, NO BM THIS SHIFT. TEMP LANZA PATENT, DRAINING CLEAR YELLOW URINE. PT BULLA TO R GREAT TOE REMAINS INTACT, UPDATED PICTURES IN CHART. NEW BLISTERS NOTED TO R THIGH, PICTURES IN CHART, MADE AWARE. DISCOLORATION TO BILATERAL HANDS, FEET, AND THIGHS PRESENT, IMPROVMENT NOTED. PT REPOSITIONED Q2HRS. PLAN OF CARE ONGOING;TRANSFER TO HIGHER LEVEL OF CARE.
--- NOTE | 2025-08-19 20:46 | NUR ---
ASSUMED CARE/TRANSFER TO [facility] ASSUMED CARE AT START OF SHIFT (1899). REPORT RECEIVED FROM DAY SHIFT RN. PT IS DOING WELL AND RESTING IN BED. PT IS ALERT AND FOLLOWING COMMANDS. PT DENIES ANY PAIN, CP, OR SOB AT THIS TIME. LUNG SOUNDS ARE CLEAR AND EQUAL, ON RA WITH SPO2 >95%. SINUS RYTHM WITH SBP: 140'S MAP >65 HR: 70'S. IV: POWERGLIDE IN LUE. LANZA CATHETER IN PLACE AND DRAINING TO GRAVITY. SKIN: SCATTERED MOTTLING, BRUISING, EDEMA. BULLAE ON R BIG TOE. LINES AND CORDS PLACED OUT OF REACH. CALL LIGHT PLACED WITHIN REACH. PT IS BEING TRANSFERED UP TO [facility] IN [place], [place]. CALL TO GIVE REPORT TO MARY FLORES @ 194. PT IS BEING TRANSPORT VIA AMBULANCE. PT SIGNED TRANSFER CONSENT FORM. AMBULANCE ARRIVED AT 1950. PT WAS TRANSFERRED FROM BED TO [facility] VIA SHEET DRAW. PT'S SPOUSE CURTIS WAS CALLED @ 1936 AND NOTIFIED THAT THE PT WAS BEING TRANSFERRED UP TO [place] VIA AMBULANCE AND WILL LEAVING WITHIN THE HOUR. PT'S SPOUSE STATED THAT SHE TOOK ALL THE PT'S BELONGINGS HOME WITH HER EXCEPT FOR A PICTURE. PT'S PICTURE WAS GIVEN BACK TO THE PT PRIOR TO TRANSFER. TRANSFERR PACKET WAS GIVEN TO AMBULANCE CREW AND FOLLOWED PT UP TO [facility]. PT LEFT ICU @ 2004.
[2025-08-21 08:07] LABS: HAPTOGLOBIN 99 mg/dL (30-200)
[2025-08-21 17:35] LABS: CRYOGLOBULIN QUALITATIVE SCRN NEG 72Hour (NEG 72Hour)
== END 2025-08-19 20:08 | disposition short-term general hospital (02) | DRG 871 ==
LOC: ER 20:16 → ICUE 08-15 00:12
PROVIDERS: Emergency Medicine; Hospitalist; Internal Medicine; Internal Medicine Critical Care Medicine; ADMIT Student in an Organized Health Care Education/Training Program
PROC: 0T9B70Z Drainage of Bladder with Drainage Device, Via Natural or Artificial Opening (ICD-10-PCS; principal; 2025-08-14)
PROC: 4A133R1 Monitoring of Arterial Saturation, Peripheral, Percutaneous Approach (ICD-10-PCS; 2025-08-14)
PROC: 3E03329 Introduction of Other Anti-infective into Peripheral Vein, Percutaneous Approach (ICD-10-PCS; 2025-08-14)
PROC: 3E033XZ Introduction of Vasopressor into Peripheral Vein, Percutaneous Approach (ICD-10-PCS; 2025-08-14)
PROC: 05HM33Z Insertion of Infusion Device into Right Internal Jugular Vein, Percutaneous Approach (ICD-10-PCS; 2025-08-14)
PROC: 5A09357 Assistance with Respiratory Ventilation, Less than 24 Consecutive Hours, Continuous Positive Airway Pressure (ICD-10-PCS; 2025-08-15)
DX: A41.02 Sepsis due to Methicillin resistant Staphylococcus aureus (principal); I21.A1 Myocardial infarction type 2; J96.01 Acute respiratory failure with hypoxia; R65.21 Severe sepsis with septic shock; N17.0 Acute kidney failure with tubular necrosis; E87.20 Acidosis, unspecified; E87.1 Hypo-osmolality and hyponatremia; I13.0 Hypertensive heart and chronic kidney disease with heart failure and stage 1 through stage 4 chronic kidney disease, or unspecified chronic kidney disease; I50.22 Chronic systolic (congestive) heart failure; I38 Endocarditis, valve unspecified; E78.5 Hyperlipidemia, unspecified; I25.2 Old myocardial infarction; I51.3 Intracardiac thrombosis, not elsewhere classified; N18.30 Chronic kidney disease, stage 3 unspecified; E87.6 Hypokalemia; D69.59 Other secondary thrombocytopenia; R23.0 Cyanosis; I45.10 Unspecified right bundle-branch block; J44.9 Chronic obstructive pulmonary disease, unspecified; I25.10 Atherosclerotic heart disease of native coronary artery without angina pectoris; I48.91 Unspecified atrial fibrillation; Z86.718 Personal history of other venous thrombosis and embolism; Z86.711 Personal history of pulmonary embolism; Z95.5 Presence of coronary angioplasty implant and graft; Z95.810 Presence of automatic (implantable) cardiac defibrillator; Z98.890 Other specified postprocedural states; Z87.891 Personal history of nicotine dependence; Z79.01 Long term (current) use of anticoagulants; Z79.82 Long term (current) use of aspirin; Z79.899 Other long term (current) drug therapy
CPT/HCPCS: 36415; 36556; 36600; 51702; 70450; 71045; 71260; 74176; 78802; 80053; 80069; 80074; 80202; 81001; 82330; 82375; 82595; 82803; 83010; 83021; 83605; 83615; 83735; 83880; 84100; 84484; 85025; 85060; 85379; 85384; 85610; 85651; 85730; 86037; 86038; 86140; 86200; 86430; 87040; 87077; 87086; 87147; 87186; 87324; 87507; 87637; 93005; 93010; 93312; 93325; 94660; 94762; 96365; 96366; 96367; 96375; 99285-25; A9270; A9569; C1751; C8929; G0480; J0282; J0612; J0692; J1171; J1650; J1720; J2371; J2704; J3010; J3373; J3480; J7030; J7040; J7050; J7070; J7120; J7121; Q9957; Q9967